=== PATIENT | male | born 1930 | race Caucasian/White ===

== ENCOUNTER 2017-03-18 06:08 | Day surgery (SDC) | payer MEDICARE ==
[~2017-03-18] VITALS: Ht 185.4 cm; Wt 83.3 kg
[2017-03-18] MEDS ORDERED: IOHEXOL 350 MG/ML 100 ML BTL (for Cath Lab) OTHER ONE (06:09)
[2017-03-18] MEDS ORDERED: IOHEXOL 350 MG/ML 50 ML BTL (for Cath Lab) OTHER ONE (06:09)
[2017-03-18 07:19] VITALS: BP 117/75; PULSE 88; RESP 18; TEMP 97.8; O2SAT 100
[2017-03-18] MEDS ORDERED: FERR324T4 PO (07:34)
[2017-03-18] MEDS ORDERED: METO1TAB9 PO (07:34)
[2017-03-18] MEDS ORDERED: ROSU20 PO (07:34)
[2017-03-18] MEDS ORDERED: ASPI81TA23 PO (07:34)
[2017-03-18] MEDS ORDERED: MELA1TAB18 PO (07:34)
[2017-03-18] MEDS ORDERED: MEMA1TAB2 PO (07:34)
[2017-03-18] MEDS ORDERED: HEPARIN-NS/PF INJ 1,000 ML ONE (09:02)
[2017-03-18] MEDS ORDERED: MIDAZOLAM HCL 2 MG/2 ML VIAL ONE ×3 (09:02→10:49)
[2017-03-18] MEDS ORDERED: HEPARIN SODIUM - IV 10,000 UNITS/10 ML VIAL ONE (09:03)
[2017-03-18] MEDS ORDERED: SODIUM CHLOR 0.9% 1000 ML INJ 1,000 ML IV SCH (11:09)
[2017-03-18] MEDS ORDERED: CLOPIDOGREL 300 MG TAB ONE (11:09)
[2017-03-18] MEDS ORDERED: PLAV75TA29 PO (11:13)
[2017-03-18] MEDS ORDERED: oxyCODONE/ACETAMINOPHEN 5 MG/325 MG TAB PO PRN (11:15)
[2017-03-18] MEDS ORDERED: METOCLOPRAMIDE HCL 10 MG/2 ML VIAL IV PUSH PRN (11:15)
[2017-03-18] MEDS ORDERED: LIDOCAINE HCL 1% 50 ML VIAL INFIL PRN (11:15)
[2017-03-18] MEDS ORDERED: ONDANSETRON HCL 4 MG/2 ML VIAL IV PUSH PRN (11:15)
[2017-03-18] MEDS ORDERED: LORazepam 2 MG/ML VIAL IV PUSH PRN (11:15)
[2017-03-18] MEDS ORDERED: SODIUM CHLOR 0.9% 250 ML INJ 250 ML IV PRN (11:15)
[2017-03-18] MEDS ORDERED: MISC INFORMATION XX ONE (11:15)
--- NOTE | 2017-03-18 11:17 | CATHPROC ---
[employer] HIS Report Study Information Study Number Admission Scheduled Start Study Start [id number] Mar 18 2017 6:08AM 03/18/2017 Mar 18 2017 8:51AM [place] Service Cath Endovascular Study Admit Source Facility Department Other [facility] - Sales Rep Physician and Clinical Staff Initial Jeremie Fabian Ballpoint Pen Assembly Machine Operator Melissa Kaur,NICOLAS Recorder Subhash Rangel,RT(R) Scrub Thomas Espinoza,RT(R) Procedures Performed Procedure Location (Site) Vessel Name Abdominal Angiogram Abd Aorta (A3) Aorta Angiogram (manual) Fem Art (left) Femoral Art Angiogram (manual) Iliac L. Com. (L4) Illiac Art. Angiogram (manual) Peroneal (left) Popliteal Angiogram (manual) Popliteal L (L10) Popliteal Angiogram (manual) SFA (left) Femoral Art Angiogram (manual) Tib, Ant. (left) Popliteal Angiogram (manual) Tib, Post (Left) Popliteal LICENSE CLERK Peroneal (left) Popliteal Wire insertion Fem Art (right) Femoral Art Equipment Time Luggage Repairer Description Size Mfg Part Number Used/Scraped [id number] 10:04 [employer] WIRE, ASAHI CONFIANZA 300CM 300CM Used *[id number] WIRE, ASAHI MIRACLEBROS 4.5 [id number] 09:46 [employer] 300CM Used 300CM *[id number] 09:39 ANGIO-DYNAMICS OMNI FLUSH 65CM CATHETER FR 5 Used *[id number] DBP- CARDIOVASCULAR CATHETER, MICRO CROWN 10:45 [id number] Used SYSTEMS INC. 1.25MM *[id number] CARDIOVASCULAR [id number] 10:42 WIRE, FIRM (VIPER) 335 Used SYSTEMS INC. *[id number] WIRE, GUIDE APPROACH HYDRO [id number] 10:20 COOK/RICH 300CM Used ST *[id number] 532-523 09:07 CORDIS/ RICH RIM SUPER TORQUE CATHETER FR 5 Used *[id number] *[id number] ENDOVASCULAR CATHETER, FR4 TRAILBLAZER [id number] 09:46 135CM Used COMPANY .014 *[id number] BALLOON, ADMIRAL IN.PACT 4 X [id number] 10:54 [employer] 130CM Used 150 130CM *[id number] BALLOON, AMPHIRION DEEP 3 X [id number] 10:51 [employer] 120CM Used 80 120CM *[id number] 09:07 MALLINCKRODT SYRINGE, ANGIOMAT 150ML 150ML [id number] Used [id number] 09:07 MEDLINE IND[employer] PACK, CCL CUSTOM * Used *[id number] 09:07 MEDLINE PACER PEN, SKIN DUAL W/ RULER * Used *[id number] 10:58 [employer] MEDICAL SHEATH, FR6.5 PRELUDE 11CM FR 6.5 038ACT Used *[id number] 09:07 [employer] MEDICAL WIRE, EXCHANGE 260CM 3MMJ 260CM Used *[id number] 09:07 NAMIC MANIFOLD, 4 PORT * Used *[id number] 09:07 NAMIC TUBING, HIGH PRESSURE 48" 48" Used *[id number] 09:07 NYCOMED OMNIPAQUE, 300 MG, 150ML 150ML [id number] Used 09:29 [employer] OMNIPAQUE, 300 MG, 50ML 50ML [id number] Used [id number] 09:07 [facility] BLANKET,WARM AIR CCL * Used *[id number] CATHETER, QUICK CROSS 518-081 10:14 [employer] .035 Used EXTREME 135CM *[id number] CATHETER, SUPPORT .014 QUICK- [id number] 10:17 [employer] .014 Used CROSS [id number] 09:07 TERUMO MEDICAL SHEATH, FR5 TERUMO (10CM) FR 5 Used *[id number] SHEATH, FR6 PINNACLE 09:37 TERUMO MEDICAL/RICH FR 6 [id number] *[id number] Used DESTINATION 90CM WIRE, ANGLE GLIDE STIFF .035 [id number] 09:07 TERUMO MEDICAL/RICH 260CM Used 260CM *[id number] Equipment Model, Serial, Lot Number and Expiration Data Description Model Number Serial Number Lot Number Expiration Date BALLOON, AMPHIRION DEEP 3 X 80 [id number] 02-25-2018 120CM CATHETER, MICRO CROWN [id number] 07-26-2018 1.25MM CATHETER, QUICK CROSS EXTREME [id number] 02-13-2018 135CM CATHETER, SUPPORT .014 QUICK- [id number] 05-11-2018 CROSS WIRE, FIRM (VIPER) 335 [id number] 10-26-2018 WIRE, GUIDE APPROACH HYDRO [id number] 02-15-2019 ST History: Current Medications Medication Dosage/Unit Route Frequency Last Date/Time Taken Statins (any) LOPRESSOR ASA History: Allergies Allergy Reaction Keflex History: Risk Factors Family History of Hypertension Dyslipidemia Previous PR Previous Heart Failure Premature CAD Yes Yes No No No Prior Valve Prior PCI Prior CABG Surgery No No No Cerebrovascular Peripheral Artery Chronic Lung On Dialysis Diabetes Disease Disease Disease No Yes Yes No No History: Stress Tests Stress or Imaging Studies Performed No History: Arrhythmias Selection Items Atrial fibrillation History: Other Disease Selection Items HTN History: Other Current Smoker No Labs Hgb (g/dl) Hct (%) WBC (l/cumm) Platelets (thousands) 11.60-17.00 35.00-51.00 4.00-11.00 150.00-450.00 12.3 39 6.3 151 Glucose (mg/dl) BUN (mg/dl) Creatinine (mg/dl) BUN:Creatinine (1:x) 74.00-106.00 7.00-18.00 0.50-1.30 10.00-20.00 81 23 0.9 25.6 Na (meq/l) K (meq/l) 136.00-145.00 3.50-5.10 146 4.4 INR (PTT:PT) 0.90-1.10 1 CPK-MB (ng/ML) 0.50-3.60 Not Drawn Medication Medication Total Dose (Bolus/Oral) Medication Total Dosage/Unit 1% XYLOCAINE 20 mL FENTANYL 100 mcg HEPARIN 7000 units NTG (IC) 800 mcg PLAVIX 600 mg VERSED 5 mg Medications (Bolus/Oral) Medication Time Given Dosage/Unit Administered By Reason VERSED 03/18/2017 9:17:35 AM 1 mg Richard Kauron 1 mg VERSED given in lab by Melissa Kaur RN in Left Antecubital via Peripheral IV. FENTANYL 03/18/2017 9:18:46 AM 50 mcg Melissa Kaur 50 mcg FENTANYL given in lab by Melissa Kaur RN via Peripheral IV. 1% XYLOCAINE 03/18/2017 9:26:22 AM 20 mL Jeremie Worley 20 mL 1% XYLOCAINE given in lab by Jeremie Worley in Right Groin via Subcutaneous. VERSED 03/18/2017 9:26:48 AM 1 mg Richard Kauron 1 mg VERSED given in lab by Melissa Kaur RN in Left Antecubital via Peripheral IV. FENTANYL 03/18/2017 9:27:26 AM 25 mcg Vincent, Melissa 25 mcg FENTANYL given in lab by Melissa Kaur RN in Left Antecubital via Peripheral IV. HEPARIN 03/18/2017 9:42:47 AM 5000 units Richard Kauron 5000 units HEPARIN given in lab by Melissa Kaur RN in Left Antecubital via Peripheral IV. 03/18/2017 10:08:40 VERSED 1 mg Vincent, Melissa AM 1 mg VERSED given in lab by Melissa Kaur RN via Peripheral IV. 03/18/2017 10:09:00 FENTANYL 25 mcg Vincent, Melissa AM 25 mcg FENTANYL given in lab by Melissa Kaur RN in Left Antecubital via Peripheral IV. 03/18/2017 10:33:50 VERSED 1 mg Vincent, Melissa AM 1 mg VERSED given in lab by Melissa Kaur RN via Peripheral IV. 03/18/2017 10:38:34 HEPARIN 2000 units Melissa Kaur AM 2000 units HEPARIN given in lab by Melissa Kaur RN via Peripheral IV. 03/18/2017 10:44:27 NTG (IC) 400 mcg Jeremie Worley AM 400 mcg NTG (IC) given in lab by Jeremie Worley via Intra-arterial. 03/18/2017 10:50:34 VERSED 1 mg Richard Kauron AM 1 mg VERSED given in lab by Melissa Kaur RN via Peripheral IV. 03/18/2017 11:00:53 NTG (IC) 400 mcg Jeremie Worley AM 400 mcg NTG (IC) given in lab by Jeremie Worley via Intra-arterial. 03/18/2017 11:19:59 PLAVIX 600 mg Melissa Kaur AM 600 mg PLAVIX given in lab by Melissa Kaur RN via Oral. Medication (Drip) Medication Time Given Dosage/Unit Concentration/Unit Diluent (ml) Solution IV Solutions 03/18/2017 8:58:59 AM 0 mL (IV) 500 NaCl .9 IV Solutions given in lab by Melissa Kaur RN in Left Antecubital via Peripheral IV. Pump/Drip Flow = 20 ml/hr using NaCl .9. Initial Case Assessment Cardiovascular HR Rhythm NIBP Chest Pain 78 Sinus 144/81 0 Edema Present Skin color Skin None Normal Warm Dry Circulatory - Right Pulses Dorsalis Pedis Femoral d 2 Scale (0,1,2,3,4,d) Circulatory - Left Pulses Dorsalis Pedis Femoral d 2 Scale (0,1,2,3,4,d) Neurological State Oriented to time-place- Alert Moves all extremities person Respiration - General Respiration Rate SpO2 (%) O2 (lpm) (B/min) 12 98 0 Final Case Assessment Cardiovascular HR Rhythm NIBP Chest Pain 68 REG 116/75 0 Edema Present Skin color Skin None Normal Warm Neurological State Oriented to time-place- Alert Moves all extremities person Respiration - General Respiration Rate SpO2 (%) (B/min) 14 98 Chronological Log Time Study Chronological Log 8:51:14 Patient arrived via Bed. 8:58:08 Patient Name, D.O.B, / Armband Verified By R.N. 8:58:10 Consent signed by the physician and the patient and verified by the Sales Rep staff. 8:58:11 Pre-op and post- op instructions given; patient acknowledges understanding of instructions. 8:58:12 Verbal Stimulation=2 Physical Stimulation=2 Airway=2 Respiration=2 TOTAL=8. (0=absent, 1=li mited, 2=present) 8:58:18 Patient has been NPO for More than 6Hrs. 8:58:19 Skin Breakdown- rash left groin and left foot medial ankle wound. 8:58:25 Patient Warmer Placed on the Table. 8:58:27 Levar Prominences Protected 8:58:30 A # 20 IV was noted in the Antecubital (left). Grade = 0 IV Solutions given in lab by Melissa Kaur RN in Left Antecubital via Peripheral IV. Pump/Drip Flow = 20 ml/hr using 8:58:59 NaCl .9. 8:59:01 History and physical on the chart or being dictated. Assessment: Initial Case, HR=78 BPM, Rhythm=Sinus, AXPJ=863/81 mmhg, Chest Pain=0, Edema=None, Color=Normal, Skin = Warm, Dry Right Pulses: Luis Manuel Ped=d, Femoral=2 8:59:03 Left Pulses: Luis Manuel Ped=d, Femoral=2 Neurological: State=Alert, Ox3, VERA Respiration: Resp=12 B/min, SpO2=98 %, O2=0 lpm Vitals capture started with the following parameters, Patient=Adult, Interval=5 min, Initial Pre ugpyq=095 mmHg, 8:59:18 Deflation Rate=5 mmHg, Cuff placed on Right Arm 8:59:41 Reference ECG taken 8:59:55 HR=75 bpm, LOUL=295/81 mmhg, SpO2=99.0 %, Resp=10 B/min, Pain=0, Farzad=10, Faith=2 9:04:52 HR=70 bpm, KKVU=315/85 mmhg, SpO2=97.0 %, Resp=14 B/min, Pain=0, Farzad=10, Faith=2 9:05:58 Bilateral groins prepped with 2% chlorhexidine, and draped after a 3 minute waiting time. 9:09:53 HR=71 bpm, EUAB=507/72 mmhg, SpO2=99.0 %, Resp=15 B/min, Pain=0, Farzad=10, Faith=2 9:12:28 MD paged 9:12:34 Pressure channel 1 zeroed. 9:14:52 HR=77 bpm, YRZE=336/92 mmhg, SpO2=97.0 %, Resp=8 B/min, Pain=0, Farzad=10, Faith=2 9:17:01 MD arrived. 9:17:35 1 mg VERSED given in lab by Melissa Kaur, NICOLAS in Left Antecubital via Peripheral IV. 9:18:46 50 mcg FENTANYL given in lab by Melissa Kaur, NICOLAS via Peripheral IV. 9:19:53 HR=72 bpm, CJRP=035/82 mmhg, SpO2=99.0 %, Resp=15 B/min, Pain=0, Farzad=10, Faith=2 9:24:54 HR=77 bpm, GCAX=670/70 mmhg, SpO2=94.0 %, Resp=6 B/min, Pain=0, Farzad=10, Faith=2 Time Out. Correct patient, correct procedure, correct physician, power injector loaded with cont rast with surgical team 9:25:20 present. Time Out Concurred by MD and individual staff in procedure. 9:26:02 Case Start 9:26:22 20 mL 1% XYLOCAINE given in lab by Jeremie Worley in Right Groin via Subcutaneous. 9:26:48 1 mg VERSED given in lab by Melissa Kaur, RN in Left Antecubital via Peripheral IV. 9:27:21 Access site was Right Femoral Artery. 9::26 25 mcg FENTANYL given in lab by Melissa Kaur, RN in Left Antecubital via Peripheral IV. 9:27:44 A SHEATH, FR5 TERUMO (10CM) FR 5 was advanced into the Fem Art (right) using the Percutaneou s technique. A PIGTAIL ANG. INFINITI CATHETER FR 5 was advanced over a wire. OMNIPAQUE, 300 MG, 50ML 50ML was used for 9:28:16 injections. 9:28:48 Wire removed 9:29:51 HR=66 bpm, OQCT=023/66 mmhg, SpO2=87.0 %, Resp=7 B/min, Pain=0, Farzad=10, Faith=2 9:31:06 Through a PIGTAIL ANG. INFINITI CATHETER FR 5, The Abdominal Aorta was injected with 12 cc's of contrast. After removing the current catheter a RIM SUPER TORQUE CATHETER FR 5 was advanced over a WIRE, A NGLE GLIDE 9:32:02 STIFF .035 260CM 260CM. 9:34:16 Iliac L. Com. (L4) angiogram, manually injected. 9:34:25 Fem Art (left) angiogram, manually injected. 9:34:37 SFA (left) angiogram, manually injected. 9:34:45 Popliteal L (L10) angiogram, manually injected. 9:34:48 HR=77 bpm, XBHE=178/69 mmhg, SpO2=98.0 %, Resp=1 B/min, Pain=0, Farzad=10, Faith=2 9:35:26 Tib, Ant. (left) angiogram, manually injected. 9:35:58 Tib, Post (Left) angiogram, manually injected. After removing the current catheter a OMNI FLUSH 65CM CATHETER FR 5 was advanced over a WIRE, A NGLE GLIDE 9:39:38 STIFF .035 260CM 260CM. 9:39:51 HR=68 bpm, UBGB=860/67 mmhg, VnZ3=971.0 %, Resp=18 B/min, Pain=0, Farzad=10, Faith=2 9:41:14 Catheter was removed 9:42:47 5000 units HEPARIN given in lab by Melissa Kaur, RN in Left Antecubital via Peripheral IV. 9:44:50 HR=69 bpm, VHML=245/76 mmhg, QhL2=562.0 %, Resp=13 B/min, Pain=0, Farzad=10, Faith=2 A SHEATH, FR6 PINNACLE DESTINATION 90CM FR 6 was exchanged in the Fem Art (right). This was nec essary in 9:46:50 order to accomodate a larger catheter. 9:46:58 Wire removed A CATHETER, FR4 TRAILBLAZER .014 135CM was advanced over a wire. OMNIPAQUE, 300 MG, 150ML 150ML was 9:47:00 used for injections. 9:47:08 A WIRE, ASAHI MIRACLEBROS 4.5 300CM 300CM was inserted via Fem Art (right). 9:49:51 HR=76 bpm, EBRR=147/85 mmhg, SpO2=99.0 %, Resp=14 B/min, Pain=0, Farzad=10, Faith=2 9:54:54 HR=74 bpm, KZLM=938/71 mmhg, TuJ5=575.0 %, Resp=11 B/min, Pain=0, Farzad=10, Faith=2 9:59:55 HR=69 bpm, HAHT=159/79 mmhg, MgU3=896.0 %, Resp=10 B/min, Pain=0, Farzad=10, Faith=2 10:03:59 The previous wire was exchanged for a WIRE, ASAHI CONFIANZA 300CM 300CM. 10:04:54 HR=65 bpm, IQLI=108/81 mmhg, MxO9=346.0 %, Resp=13 B/min, Pain=0, Farzad=10, Faith=2 10:08:40 1 mg VERSED given in lab by Melissa Kaur, RN via Peripheral IV. 10:09:00 25 mcg FENTANYL given in lab by Melissa Kaur, RN in Left Antecubital via Peripheral IV. 10:09:55 HR=78 bpm, ZLMT=229/82 mmhg, VdW7=808.0 %, Resp=3 B/min, Pain=0, Farzad=10, Faith=2 10:14:56 HR=76 bpm, YLHC=562/72 mmhg, SpO2=95 %, Resp=9 B/min, Pain=0, Farzad=10, Faith=2 After removing the current catheter a CATHETER, SUPPORT .014 QUICK-CROSS .014 was advanced over a WIRE, 10:18:08 [facility] 300[facility] 300CM. 10:18:53 ACT (Normal Range 90-180) = 251 10:19:53 HR=71 bpm, RSXH=714/76 mmhg, SpO2=98.0 %, Resp=12 B/min, Pain=0, Farzad=10, Faith=2 10:20:42 The previous wire was exchanged for a WIRE, GUIDE APPROACH HYDRO ST 300CM. 10:24:55 HR=74 bpm, QCVY=154/76 mmhg, SpO2=97.0 %, Resp=11 B/min, Pain=0, Farzad=10, Faith=2 10:29:56 HR=68 bpm, CCLA=972/83 mmhg, KoX6=061.0 %, Resp=11 B/min, Pain=0, Farzad=10, Faith=2 10:33:50 1 mg VERSED given in lab by Melissa Kaur, NICOLAS via Peripheral IV. 10:34:57 HR=65 bpm, EIWK=600/84 mmhg, MpH5=170.0 %, Resp=11 B/min, Pain=0, Farzad=10, Faith=2 out of the posterior tibial artery and repositioned in Perineal artery 10:36:06 10:38:34 2000 units HEPARIN given in lab by Melissa Kaur, RN via Peripheral IV. 10:39:56 HR=79 bpm, NJZR=723/83 mmhg, GoJ6=415.0 %, Resp=9 B/min, Pain=0, Farzad=10, Faith=2 10:41:19 Wire removed 10:43:54 A WIRE, FIRM (VIPER) 335 was inserted via Fem Art (right). 10:44:09 An CATHETER, MICRO CROWN 1.25MM catheter was inserted into the Peroneal (left). 10:44:27 400 mcg NTG (IC) given in lab by Jeremie Worley via Intra-arterial. 10:44:55 HR=73 bpm, VECC=121/88 mmhg, CrB1=337.0 %, Resp=10 B/min, Pain=0, Farzad=10, Faith=2 10:49:51 ATHERECTOMY IN PROGRESS 10:50:00 HR=74 bpm, EBQB=445/73 mmhg, SpO2=96.0 %, Resp=20 B/min, Pain=0, Farzad=10, Faith=2 10:50:34 1 mg VERSED given in lab by Melissa Kaur, RN via Peripheral IV. 10:51:01 A BALLOON, AMPHIRION DEEP 3 X 80 120CM 120CM was inserted over WIRE, FIRM (VIPER) 335 via t he Peroneal (left). 10:53:19 In the Peroneal (left) a BALLOON, AMPHIRION DEEP 3 X 80 120CM 120CM was inflated to 6 atms for 30 seconds. 10:54:23 Balloon Removed. 10:55:32 HR=69 bpm, QQAN=650/77 mmhg, SpO2=97.0 %, Resp=15 B/min, Pain=0, Farzad=10, Faith=2 A BALLOON, ADMIRAL IN.PACT 4 X 150 130CM 130CM was inserted over WIRE, FIRM (VIPER) 335 via the Peroneal 10:56:25 (left). 10:56:26 In the Peroneal (left) a BALLOON, ADMIRAL IN.PACT 4 X 150 130CM 130CM was inflated to 6 [place] s for 180 seconds. 10:59:47 Balloon Removed. 10:59:58 HR=65 bpm, CFQJ=429/73 mmhg, SpO2=98.0 %, Resp=10 B/min, Pain=0, Farzad=10, Faith=2 11:00:53 400 mcg NTG (IC) given in lab by Jeremie Worley via Intra-arterial. 11:03:28 Peroneal (left) angiogram, manually injected. 11:03:42 Activated Clotting Time Drawn A SHEATH, FR6.5 PRELUDE 11CM FR 6.5 was exchanged in the Fem Art (right). This was necessary in order to 11:03:46 accomodate a larger catheter. 11:05:42 HR=71 bpm, LKSR=559/75 mmhg, SpO2=97.0 %, Resp=12 B/min, Pain=0, Farzad=10, Faith=2 Assessment: Final Case, HR=68 BPM, Rhythm=REG, JKLX=199/75 mmhg, Chest Pain=0, Edema=None, [place] r=Normal, Skin = Warm 11:06:07 Neurological: State=Alert, Ox3, VERA Respiration: Resp=14 B/min, SpO2=98 % 11:06:41 Catheter(s) removed without difficulty 11:06:43 In the Fem Art (right) the SHEATH, FR6.5 PRELUDE 11CM FR 6.[address] by Thomas Baires, RT(R). 11:07:05 Case End 11:07:08 Sterile dressing applied to site 11:07:09 No case complications noted. 11:07:11 Cine recording checked. 11:07:12 Bedside Report will be given. 11:07:15 Contrast Scanned 11:09:25 ACT (Normal Range 90-180) = 262 11:10:00 HR=62 bpm, EKZK=544/65 mmhg, SpO2=99.0 %, Resp=16 B/min, Pain=0, Farzad=10, Faith=2 11:15:01 HR=56 bpm, UCRH=078/72 mmhg, VuG4=459.0 %, Resp=20 B/min, Pain=0, Farzad=10, Faith=2 11:19:59 600 mg PLAVIX given in lab by Melissa Kaur, RN via Oral. End Study - Contrast Media Used In Study Contrast Total Opened (mL) Total Used (mL) Total Wasted (mL) Omnipaque 150 150 0 End Study - Maximum Contrast Load Max Contrast Load (mL) 462.1 End Study - Radiation Exposure Fluoro Time (minutes) 46.3 End Study - Patient Disposition Complications Transferred To Interventional Outcome No Outpatient Bed successful
[2017-03-18] MEDS ORDERED: MORPHINE SULFATE 2 MG/ML INJ IV PUSH PRN (11:30)
[2017-03-18] MEDS ORDERED: PROTAMINE SULFATE 50 MG/5 ML VIAL ONE (14:50)
[2017-03-18] MEDS ORDERED: PROTAMINE SULFATE 50 MG/5 ML VIAL IV ONE (15:30)
[2017-03-18 16:30] VITALS: BP 104/63; PULSE 67; PULSE 75; RESP 18; TEMP 98.1; O2SAT 97
[2017-03-18 17:00] VITALS: PULSE 60
[2017-03-18 18:00] VITALS: PULSE 64
[2017-03-18 21:30] VITALS: BP 110/62; PULSE 62; PULSE 72; RESP 18; TEMP 97; O2SAT 98
--- NOTE | 2017-03-18 21:40 | MA ---
cc: ALESSIA HERNANDEZ MD DATE 03/18/17 Peripheral angiography with intervention. PROCEDURE PERFORMED 1. Fluoroscopy interpretation. 2. Descending aortography 3. Left lower extremity peripheral angiography first, second, third order visualization interpretation 4. Rotational atherectomy including angioplasty of drug coated balloon of the left peroneal artery. METHODS Risks, benefits and alternatives discussed with the patient. The patient understood. PROCEDURE The patient brought into the catheterization lab and placed on the catheterization table. The right groin was prepped and draped in sterile fashion. Right groin was anesthetized with 2% lidocaine. Left common femoral artery was cannulated and 5 Citizen Of [place] sheath placed without difficulty. DESCENDING AORTOGRAPHY 1. Descending aorta is normal, bilateral renal artery is widely patent. PERIPHERAL ANGIOGRAPHY Left internal, external common iliac arteries are widely patent. Left common femoral, profunda, superficial. femoral, popliteal arteries have all minor luminal irregularities. There is diffuse severe infrapopliteal disease. Anterior tibial vessel has 50% stenosis throughout. The peroneal vessels have 95% subtotal occlusion and the posterior tibial is occluded with collateralization. PERIPHERAL ANGIOGRAPHY A 6-Citizen Of [place] 90 cm destination pinnacle sheath was advanced up-and-over the arch to the level of the left popliteal artery. Heparin was administered throughout the entire procedure to maintain appropriate anticoagulation. A 0.014 300-cm miracle broach 4.5 gram tip was then attempted to be advanced to the chronic occlusion of the posterior tibial artery. A quick cross catheter navigated behind it. We tried additionally another wire, 0.014 inch tapered 300 cm Confianza wire. After great length of time and difficulty, we were unable to navigate back into the true lumen. The posterior tibial revascularization was aborted from an antegrade approach. A hydro ST 0.014, 300 cm white wire was advanced through the subtotal occlusion in the peroneal vessel to the distal vessel. Quick cross catheter navigated behind it. Wire was removed. A viper wire 0.014 335 cm was placed down into the distal peroneal vessel. Quick cross catheter removed. The 1.5 mm CSI atherectomy catheter is then prepped. A rotational atherectomy performed on two sequential passes at 90,000 revolutions per minute. A 3.0 x 80 mm Medtronic balloon was deployed in the peroneal vessel followed by 4.0 x 150 mm Medtronic drug coated balloon in the peroneal for prolonged inflation. Repeat angiography showed no residual stenosis, MARSHAL III flow and good collateralization to the posterior tibial artery at the level of the heel. 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 Successful orbital rotational atherectomy and balloon angioplasty with drug coated balloon of the left peroneal artery. PLAN Hopefully, this will translate well to wound healing. We will monitor the patient closely and initiate Plavix. Follow up in the outpatient setting and to be discharged later today. MD GEMMA Lee/ /11:11 AM /9:05 PM MTDD
[2017-03-19 00:40] VITALS: BP 116/66; PULSE 89; RESP 18; TEMP 97.7; O2SAT 96
[2017-03-19 04:01] VITALS: BP 115/64; PULSE 75; RESP 16; TEMP 99.2; O2SAT 98
--- NOTE | 2017-03-19 07:44 | PD.CARD.PN ---
Subjective Subjective Remarks RN at bedside. The patient is doing well today. Groin site is doing well. No lower extremity pain. Denies any chest pain or shortness of breath. Objective Medications Current Medications Medications (Trade) Dose Ordered Sig/El Route Start Time Stop Time Status Last Admin (Percocet 5-325 Mg) 1 tab Q4H PRN PO 03/18/17 11:15 (Morphine Inj) 2 mg Q30M PRN IV PUSH 03/18/17 11:30 (Ativan Inj) 0.5 mg UNSCH PRN IV PUSH 03/18/17 11:15 03/19/17 11:14 Sodium Chloride 250 ml @ 500 mls/hr ONCE PRN IV 03/18/17 11:15 03/19/17 11:14 (Reglan Inj) 10 mg Q4H PRN IV PUSH 03/18/17 11:15 (Zofran Inj) 4 mg Q4H PRN IV PUSH 03/18/17 11:15 (Xylocaine 1% Inj (50 ml)) 10 ml UNSCH PRN INFIL 03/18/17 11:15 03/19/17 11:14 Vital Signs / I&O Vital Signs Date Time Temp Pulse Resp B/P (MAP) Pulse Ox O2 Delivery O2 Flow Rate FiO2 03/19/17 05:37 Room Air 03/19/17 04:01 99.2 75 16 115/64 (81) 98 03/19/17 04:01 Room Air 03/19/17 00:40 Room Air 03/19/17 00:40 97.7 89 18 116/66 (83) 96 03/18/17 21:30 97.0 72 18 110/62 (78) 98 03/18/17 21:30 Room Air 03/18/17 21:30 62 03/18/17 18:00 64 03/18/17 17:00 60 03/18/17 16:30 98.1 67 18 104/63 (77) 97 03/18/17 16:30 75 I/O 03/18/17 03/18/17 03/18/17 03/19/17 03/19/17 03/19/17 07:00 15:00 23:00 07:00 15:00 23:00 Intake Total 240 ml 240 ml Output Total 0 ml 550 ml Balance 240 ml -310 ml Intake Oral 240 ml 240 ml Output Urine Total 0 ml 550 ml # Voids 0 # Bowel Movements 0 Physical Exam GENERAL: Well-developed well-nourished. In no acute distress. NECK: No carotid bruits. No JVD. CARDIOVASCULAR: Regular rate and rhythm. No murmur appreciated. RESPIRATORY: No accessory muscle use. Clear to auscultation. Breath sounds equal bilaterally. MUSCULOSKELETAL: No clubbing or cyanosis. 1+ left lower extremity edema. Groin site clean. Clean dry chronic wounds left ankle. NEUROLOGICAL: Awake and alert. Normal speech. 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 Started on Plavix. Discharge home today. Bull Hernández Mar 19, 2017 07:44
== END 2017-03-19 09:13 | disposition home or self-care (01) ==
LOC: HDIC 06:08 → HDOC 06:08 → HCIS 16:16 → HDOC 03-19 09:13
PROVIDERS: ATTEND Internal Medicine
DX: I70.212 Atherosclerosis of native arteries of extremities with intermittent claudication, left leg (principal); E78.5 Hyperlipidemia, unspecified
CPT/HCPCS: 37229; 75625; 75710; 85002; 85347; 86850; 86900; 86901; C1714; C1725; C1751; C1769; C1893; C2623; J1644; J2250; J2720; J3010; Q9967